=== PATIENT | female | born 1970 | race American Indian/Alaskan Native ===

== ENCOUNTER 2016-05-06 12:29 | Outpatient (CLI) | payer OTHER ==
--- NOTE | 2016-05-07 11:28 | Ultrasound Report ---
TARGETED RIGHT BREAST ULTRASOUND: HISTORY: Recall after screening mammogram. FINDINGS: Comparison is made to the previous breast ultrasound performed on January 30, 2015. 3 cystic masses are identified in the area of interest at approximately 9 to 10:00. The largest of these measures 2.2 x 1.4 x 2.2 cm which represents a mild increase in size since the prior study in which this cyst measured 1.6 x 1.1 cm. The 2 smaller cysts measure 1.4 x 2 cm and 0.8 cm in diameter, both of which represent minimal increase. At the 10:00 position, a fourth ovoid-shaped cyst measuring 6 x 2 mm is also noted. IMPRESSION: 4 cysts are identified in the right breast, the largest of which at 9:00 has increased mildly in size since the previous study. No suspicious imaging findings are seen. BI-RADS CATEGORY: 2 = Benign ACR BI-RADS MAMMOGRAPHIC CODES: 0 = Needs additional imaging evaluation; 1 = Negative; 2 = Benign; 3 = Probably benign; 4 = Suspicious; 5 = Malignant; 6 = Known biopsy-proven malignancy COMMENT: 1. Dense breast tissue, i.e., adenosis, fibrocystic changes, etc., may obscure an underlying neoplasm. 2. Approximately 10% of cancers are not detected with mammography. 3. A negative mammography report should not delay biopsy if a clinically suspicious mass is present. RECOMMENDATION: Annual screening.
== END 2016-05-06 12:30 | disposition home or self-care (01) ==
LOC: US 12:29
PROVIDERS: ATTEND Surgery
DX: N60.01 Solitary cyst of right breast (principal)

== ENCOUNTER 2021-06-13 11:17 | Outpatient (CLI) | payer BC ==
--- NOTE | 2021-06-14 09:19 | Mammography Report ---
DIGITAL SCREENING MAMMOGRAM WITH CAD, 06/13/2021 CLINICAL INFORMATION / INDICATION: Routine screening mammography. SCREENING MAMMOGRAM TECHNIQUE: Digital bilateral 2D mammography was obtained in the craniocaudal and mediolateral obliqu e projections. This examination was interpreted with the benefit of Computer-Aided Detection analysis . COMPARISON: 04/18/2016 FINDINGS: Breast Density: There are scattered areas of fibroglandular density. No dominant mass, suspicious calcifications, or architectural distortion in either breast. IMPRESSION: No mammographic evidence of malignancy. Follow up recommendation: Routine yearly BI-RADS Category 1: NEGATIVE A "normal" or negative report should not discourage follow up or biopsy of a clinically significant f inding. A written summary of these findings will be mailed to the patient. The patient will be entered into a mammography reporting system which will generate a reminder letter for the patient's next appointmen t at the appropriate interval. The [employer] recommends yearly mammograms starting at age 40 and continuing as l micheal as a woman is in good health. Breast MRI is recommended for women with an approximate 20-25% or greater lifetime risk of breast cancer, including women with a strong family history of breast or ova genaro cancer or who have been treated for Hodgkin's disease. Signer Name: Scotty Nuno MD Signed: 06/14/2021 9:14 AM Workstation Name: [email or web address]
== END 2021-06-13 11:18 | disposition home or self-care (01) ==
LOC: MAMMO 11:17
PROVIDERS: ATTEND Internal Medicine
DX: Z12.31 Encounter for screening mammogram for malignant neoplasm of breast (principal)
CPT/HCPCS: 77067